=== PATIENT | male | born 1945 | race Caucasian/White ===

== ENCOUNTER 2017-07-16 17:47 | Emergency (ER) | payer MEDICARE ==
[~2017-07-16] VITALS: Ht 185.4 cm; Wt 95.0 kg
[~2017-07-16 17:47] MED LIST: ATOR40TA PO; CARV6.25 PO; CEPH500 PO; FURO20 PO; LANTINJ SQ; LEVO.075 PO; METF500 PO; NOVOINJ3 SQ; PACE200T4 PO; POTA-243 PO; RAMI2.5 PO; RIVA20 PO; TERA5CAP3 PO; [UNRECOGNIZED DRUG - CODE] PO
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
[2017-07-16 18:32] LABS: AUTOMATED NEUTROPHIL # 4.3 TH/MM3 (1.8-7.7); BASOPHIL % 0.6 % (0.0-2.0); EOSINOPHIL # 0.3 TH/MM3 (0-0.4); EOSINOPHIL % 3.9 % (0.0-4.0); HEMATOCRIT 43.2 % (39.0-51.0); HEMO FLAGS DIFF FINAL; LYMPH % 22.3 % (9.0-44.0); LYMPHOCYTE # 1.5 TH/MM3 (1.0-4.8); MEAN CELL VOLUME 86.8 FL (80.0-100.0); MEAN CORPUSCULAR HGB CONC 33.4 % (32.0-36.0); NEUT % 65.2 % (16.0-70.0); PLATELET COUNT 157 TH/MM3 (150-450); RED BLOOD COUNT 4.98 MIL/MM3 (4.50-5.90); RED CELL DISTRIBUTION WIDTH 14.8 % (11.6-17.2); WHITE BLOOD COUNT 6.6 TH/MM3 (4.0-11.0)
[2017-07-16 18:39] VITALS: BP 118/66; PULSE 83; RESP 16; TEMP 99; O2SAT 98
[2017-07-16] MEDS ORDERED: DOXY100C PO (18:46)
[2017-07-16] MEDS ORDERED: MUPI2%T TOPICAL (18:46)
[2017-07-16 18:52] LABS: BICARBONATE 30.7 MEQ/L (21.0-32.0); POTASSIUM 3.6 MEQ/L (3.5-5.1)
[2017-07-16] MEDS ORDERED: DOXYCYCLINE HYCLATE 100 MG CAP PO ONE (19:15)
== END 2017-07-16 22:03 | disposition home or self-care (01) ==
LOC: NEPC 17:47
DX: L03.116 Cellulitis of left lower limb (principal); L03.115 Cellulitis of right lower limb; D64.9 Anemia, unspecified; M19.90 Unspecified osteoarthritis, unspecified site; I48.91 Unspecified atrial fibrillation; E78.00 Pure hypercholesterolemia, unspecified; I11.0 Hypertensive heart disease with heart failure; I50.9 Heart failure, unspecified; E11.9 Type 2 diabetes mellitus without complications
CPT/HCPCS: 80048; 85025; 99284